=== PATIENT | male | born 1965 | race Caucasian/White ===

== ENCOUNTER → 2019-02-14 | Outpatient (CLI) | payer BC | LOC: M.ULTRA 07:30 | DX: N43.3 Hydrocele, unspecified (principal) ==

== ENCOUNTER → 2020-01-17 | Outpatient (CLI) | payer BC ==
--- NOTE | 2020-01-18 10:09 | TST ---
[place] [address] TREADMILL STRESS TEST Name: VLADIMIROLGA LIDIALARRYMARITN PRESTON Room: [facility]#: [id number] Admission: 01/17/20 Attend Phys: Jeaneth Wolf Discharge: Date of : 61 Date of Service: 01/17/20 [facility] Report #: [id number] THIS REPORT FOR: cc: Jeaneth Negrete Samantha RNP Blick, David R. MD [facility] ~ CC: Zoie Flannery NP DATE OF SERVICE: 01/17/2020 EXERCISE STRESS TEST INDICATIONS: Palpitations. PROCEDURE: The patient was exercised on a Aj protocol stress test. RESULTS: The patient was exercised from a pretest heart rate of 67, blood pressure 143/90. The patient was able to exercise for 6 minutes and 33 seconds achieving a peak heart rate of 164, which is greater than 90% of maximum predicted heart rate for the patient's age. The peak blood pressure was 225/79. In recovery, the patient had a heart rate of 86, blood pressure of 148/87. The patient denied chest pain and exercise was terminated because of achieving target heart rate. The patient's resting ECG showed a normal sinus rhythm with no significant ST or T-wave change. With exercise, there was a significant amount of baseline artifact noted. The patient did develop 1.[address] segment depression in leads II, III, aVF as well as V5 and V6. The ST segment changes persisted during recovery. There were no obvious arrhythmias noted during exercise. The ST segments were back to baseline 3 minutes in recovery. IMPRESSION: 1. Adequate exercise tolerance. 2. No chest pain with exercise. 3. Nondiagnostic ST-segment changes noted with exercise. CONCLUSIONS: 1. Exercise capacity adequate. 2. Clinical response, nonischemic. 3. ECG response nondiagnostic secondary to nondiagnostic ST-segment changes noted. 4. This test is felt to be indeterminate risk for predicting future cardiac events. 5. If clinically indicated, would consider [place] [address] TREADMILL STRESS TEST Name: MARTHA NUÑEZ [facility] [id number] Admission: 01/17/20 Attend Phys: Jeaneth Wolf Discharge: Date of : 61 Date of Service: 01/17/20 1640 Report #: [id number] perfusion imaging to improve the specificity of exercise stress testing to rule out ischemic heart disease. <ELECTRONICALLY SIGNED> By: Vamshi Raman MD, [facility] 01/18/20 1009 1640 40 Vamshi Raman MD, FACC /nt
== END ==
LOC: M.CRD 14:30
DX: R07.9 Chest pain, unspecified (principal)

== ENCOUNTER 2020-08-21 17:32 | Emergency (ER) | payer BC ==
[~2020-08-21] VITALS: Ht 180.3 cm; Wt 127.0 kg
[2020-08-21] MEDS ORDERED: METFORMIN HCL500 M3 PO (17:44)
[2020-08-21] MEDS ORDERED: CHOLESTEROL MED PO (17:45)
[2020-08-21 18:18] LABS: INFLUENZA A ANTIGEN Negative (Negative); INFLUENZA B ANTIGEN Negative (Negative)
[2020-08-21 18:39] VITALS: BP 142/72
== END 2020-08-21 18:42 | disposition home or self-care (01) ==
LOC: M.ERS 17:32
PROVIDERS: Emergency Medicine Emergency Medical Services
DX: U07.1 COVID-19 (principal); I10 Essential (primary) hypertension; E11.9 Type 2 diabetes mellitus without complications; M19.90 Unspecified osteoarthritis, unspecified site; F17.210 Nicotine dependence, cigarettes, uncomplicated; Z79.899 Other long term (current) drug therapy